=== PATIENT | female | born 1955 | race Caucasian/White ===

== ENCOUNTER 2017-04-17 21:09 | Emergency (ER) | payer SELFPAY ==
[~2017-04-17] VITALS: Ht 157.5 cm; Wt 48.0 kg
[2017-04-17 21:14] VITALS: BP 139/89; PULSE 110; RESP 15; TEMP 98.2; O2SAT 97
[2017-04-17] MEDS ORDERED: TETANUS/DIPHTHERIA TOXOID ADULT 0.5 ML VIAL IM ONE (21:45)
[2017-04-17] MEDS ORDERED: MORPHINE SULFATE 4 MG/ML INJ IV PUSH ONE (21:45)
[2017-04-17] MEDS ORDERED: ceFAZolin 2 GM PREMIX 50 ML IV ONE (21:45)
[2017-04-17] MEDS ORDERED: SODIUM CHLOR 0.9% 1000 ML INJ 1,000 ML IV ONE (21:45)
[2017-04-17] MEDS ORDERED: ONDANSETRON HCL 4 MG/2 ML VIAL IV PUSH ONE (21:45)
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
[2017-04-17] MEDS ORDERED: LIDOCAINE 1%/EPINEPHrine 1:100,000 SOLN 50 ML VIAL INFIL ONE (22:45)
[2017-04-17] MEDS ORDERED: ACETAMINOPHEN/HYDROcodone 325 MG/10 MG TAB PO ONE (23:30)
[2017-04-17] MEDS ORDERED: HYDR-3534 PO (23:58)
[2017-04-17] MEDS ORDERED: CEPH-460 PO (23:58)
== END 2017-04-18 00:18 | disposition home or self-care (01) ==
LOC: NEPD 21:09
DX: S81.012A Laceration without foreign body, left knee, initial encounter (principal); V27.5XXA Motorcycle passenger injured in collision with fixed or stationary object in traffic accident, initial encounter; Z23 Encounter for immunization
CPT/HCPCS: 12004; 71020; 73130; 73564; 90471; 90714; 96361; 96365; 96375; 99284; E0113; J0690; J2270; J2405; J7030; L1830

== ENCOUNTER 2018-06-20 22:44 | Inpatient (IN) ==
[2018-06-20] MEDS ORDERED: Morphine Inj 4 MG/ML Vial IV.PUSH ONE (23:57)
[2018-06-20] MEDS ORDERED: Ketorolac Inj 30 MG/ML (IVP) Vial IV.PUSH ONE (23:57)
--- NOTE | 2018-06-21 00:09 | XR ---
EXAM DATE: 06/20/2018 11:53 PM EST AGE/SEX: 63 years / Female INDICATIONS: Left hip pain after falling tonight. CLINICAL DATA: This is the patient's initial encounter. Patient reports that signs and symptoms have been present for 1 day and indicates a pain score of 10/10. MEDICAL/SURGICAL HISTORY: None. None. COMPARISON: No prior exams available for comparison. FINDINGS: There is an impacted subcapital left femoral neck fracture with cephalad displacement of the distal f ragment. Soft tissues are grossly unremarkable. No radiopaque foreign bodies. CONCLUSION: 1. Subcapital left femoral neck fracture. Electronically signed by: Oscar Arevalo MD Board Certified Radiologist 06/21/2018 12:08 AM E
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
[2018-06-21] MEDS: Sod Chloride 0.9% Inj 1,000 ML IV.CONT SCH ×3 (00:22→19:45)
[2018-06-21 00:27] LABS: Baso # (Auto) 0.1 th/mm3 (0.0-0.2); Baso % (Auto) 0.8 % (0.0-2.0); Eos % (Auto) 0.2 % (0.0-4.0); Hematocrit 50.9 % (35.0-46.0); Hemoglobin 16.6 gm/dL (11.6-15.3); Lymph # (Auto) 0.9 th/mm3 (1.0-4.8); Lymph % (Auto) 6.2 % (9.0-44.0); Mean Corpuscular HGB Conc 32.5 % (32.0-36.0); Mean Corpuscular Hemoglobin 31.3 pg (27.0-34.0); Mean Corpuscular Volume 96.3 fL (80.0-100.0); Mono # (Auto) 0.4 th/mm3 (0.0-0.9); Mono % (Auto) 2.9 % (0.0-8.0); Neut # (Auto) 12.7 th/mm3 (1.8-7.7); Neut % (Auto) 89.9 % (16.0-70.0); Platelet Count 240 th/mm3 (150-450); Red Blood Count 5.29 mil/mm3 (4.00-5.30); Red Cell Distribution Width 13.7 % (11.6-17.2); White Blood Count 14.1 th/mm3 (4.0-11.0)
[2018-06-21 00:34] LABS: Chloride 102 meq/L (98-107); Potassium 3.8 meq/L (3.5-5.1); Sodium 140 meq/L (136-145)
[2018-06-21 00:37] LABS: Calcium 8.6 mg/dL (8.5-10.1)
[2018-06-21 00:38] LABS: Activated Partial Thrombo Time 25.7 sec (23.4-31.7); Anion Gap 11 meq/L (5-15); Blood Urea Nitrogen 14 mg/dL (7-18); Carbon Dioxide 27.5 meq/L (21.0-32.0); Glucose,Random 114 mg/dL (74-106); Magnesium 1.7 mg/dL (1.5-2.5); Prothrombin Time 9.7 sec (9.8-11.6)
[2018-06-21 00:41] LABS: Alanine Aminotransferase 26 U/L (10-53); Aspartate Aminotransferase 30 U/L (15-37); Glomerular Filtration Rate 89 mL/min (>89)
[2018-06-21 00:42] LABS: Total Protein 7.6 g/dL (6.4-8.2)
[2018-06-21 00:43] LABS: Alcohol 210 mg/dL (0-5)
[2018-06-21 00:44] LABS: Alkaline Phosphatase 78 U/L (45-117)
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
--- NOTE | 2018-06-21 00:46 | XR ---
EXAM DATE: 06/21/2018 12:43 AM EST AGE/SEX: 63 years / Female INDICATIONS: Evaluate for pneumonia, pneumothorax, and communicable disease. Pre op for left hip fr acture. CLINICAL DATA: This is the patient's initial encounter. Patient reports that signs and symptoms have been present for 1 day and indicates a pain score of 0/10. MEDICAL/SURGICAL HISTORY: None. None. COMPARISON: No prior exams available for comparison. FINDINGS: A single AP view of the chest demonstrates the lungs to be symmetrically aerated without evidence of mass, infiltrate or effusion. The cardiomediastinal contours are unremarkable. Osseous structures a re intact. CONCLUSION: 1. No acute cardiopulmonary disease. Electronically signed by: Oscar Arevalo MD Board Certified Radiologist 06/21/2018 12:44 AM E
[2018-06-21] MEDS ORDERED: Morphine Sulfate Inj 2 MG/ML Vial IV.PUSH ONE (01:01)
[2018-06-21 01:08] LABS: Bilirubin,Urine Negative (Negative); Clarity,Urine Clear (Clear); Color,Urine Yellow (Yellw/Straw); Glucose,Urine (UA) Negative (Negative); Leukocyte Esterase,Urine Negative (Negative); Nitrite,Urine Negative (Negative); Specific Gravity,Urine 1.025 (1.002-1.035)
[2018-06-21 01:18] LABS: RBC,Urine 0-3 /hpf (0-3); Squamous Epithelial Cell,Urine 0-5 /hpf (0-5); WBC,Urine 0-5 /hpf (0-5)
[2018-06-21] MEDS ORDERED: Acetaminophen 325 MG Tablet PO PRN (04:10)
--- NOTE | 2018-06-21 04:11 | P.HPIM ---
History of Present Illness Service: [facility] Primary Care Physician: No Primary Care Physician Chief Complaint: Left hip pain History of Present Illness: 63-year-old female with no medical history presented to the ED status post fall. Patient states she was walking and she misstepped and fell on her left hip. She thinks her knee gave out and caused her to fall. She was unable to stand or weight-bear on the left lower extremity. She states her pain is an 8/10, intermittent, throbbing, with radiation down her leg, no associated symptoms, worse with movement, better with pain medications. She denies any loss of consciousness or hitting her head. Inpatient Certification Inpatient Certification: I certify that the inpatient services were ordered in accordance with Medicare regulations governing the order. This includes certification that hospital inpatient services are reasonable and necessary and in the case of services not specified as inpatient-only under 42 CFR 419.22(n), that they are appropriately provided as inpatient services in accordance to with the 2-midnight benchmark under 43 CFR 412.3(e) Review of Systems Review of Systems: all other systems reviewed are negative [facility] Medical History Medical History No significant medical problems (Acute) Surgical History Surgical History No history of previous surgery (Acute) Family History Family History Other Family history in first degree relatives is unremarkable Social History Social History Substance History: No History of Abuse Second Hand Smoke Exposure: Yes Smoking Status: Current every day smoker Tobacco Type: Cigarettes How Often Do You Have a Drink Containing Alcohol: 4 or more times a week Recent Travel in [place] within the Last 8 Weeks: No Recent Out of Country Travel within the Last 8 Weeks: No Immunization History Tetanus Immunization: >5 Years Hx Influenza Vaccine This Season: No Medications and Allergies Allergies Allergy/AdvReac Type Severity Reaction Status Date / Time No Known Allergies Allergy Verified 06/20/18 23:02 Home Medications Medication Instructions Recorded Confirmed Type No Known Home Medications 06/20/18 06/20/18 History Active Medications: Active Medications Sodium Chloride (Ns Inj) 1,000 mls @ 100 mls/hr IV.CONT .Q10H JAMAAL Last Infusion: 06/21/18 02:35 Dose: 100 mls/hr Sodium Chloride (Ns Flush) 2 ml IV.FLUSH UNSCH PRN PRN Reason: FLUSH AFTER USING IV ACCESS Physical Exam Vital signs: Last Vital Signs Temp 98.7 F 06/20/18 22:50 Pulse 84 06/21/18 01:38 Resp 16 06/21/18 01:38 BP 126/87 06/21/18 01:38 Pulse Ox 96 06/21/18 01:38 Intake & Output 06/18/18 06/19/18 06/20/18 06/21/18 06:59 06:59 06:59 06:59 Weight 45.569 kg Narrative: GENERAL: well nourished patient in pain SKIN: Warm and dry. HEAD: Normocephalic. EYES: No scleral icterus. No injection or drainage. NECK: Supple, trachea midline. No JVD or lymphadenopathy. CARDIOVASCULAR: Regular rate and rhythm without murmurs, gallops, or rubs. RESPIRATORY: Breath sounds equal bilaterally. No accessory muscle use. GASTROINTESTINAL: Abdomen soft, non-tender, nondistended. MUSCULOSKELETAL: No cyanosis, or edema. unable to move left leg Results Labs CBC & Chem 7: 06/21/18 00:15 06/21/18 00:15 Imaging Impressions Femur X-Ray 06/20/18 23:24 CONCLUSION: 1. Subcapital left femoral neck fracture. Chest X-Ray 06/21/18 00:10 CONCLUSION: 1. No acute cardiopulmonary disease. Hip X-Ray 06/21/18 00:10 CONCLUSION: 1. Left subcapital femoral neck fracture. Caprini VTE Risk Assessment Caprini VTE Risk Assessment: No/Low Risk (score <= 1) Caprini Risk Assessment Model: Point Value = 1 Point Value = 2 Point Value = 3 Point Value = 5 Age 41-60 Minor surgery BMI > 25 kg/m2 Swollen legs Varicose veins or History of unexplained or recurrent spontaneous Oral contraceptives or hormone replacement Sepsis (< 1 month) Serious lung disease, including pneumonia (< 1 month) Abnormal pulmonary function Acute myocardial infarction Congestive heart failure (< 1 month) History of inflammatory bowel disease Medical patient at bed rest Age 61-74 Arthroscopic surgery Major open surgery (> 45 min) Laparoscopic surgery (> 45 min) Malignancy Confined to bed (> 72 hours) Immobilizing plaster cast Central venous access Age >= 75 History of VTE Family history of VTE Factor V Leiden Prothrombin [id number] Lupus anticoagulant Anticardiolipin antibodies Elevated serum homocysteine Heparin-induced thrombocytopenia Other congenital or acquired thrombophilia Stroke (< 1 month) Elective arthroplasty Hip, pelvis, or leg fracture Acute spinal cord injury (< 1 month) Prophylaxis Regimen: Total Risk Factor Score Risk Level Prophylaxis Regimen 0-1 Low Early ambulation 2 Moderate Order ONE of the following: *Sequential Compression Device (SCD) *Heparin 5000 units SQ BID 3-4 Higher Order ONE of the following medications: *Heparin 5000 units SQ TID *Enoxaparin/Lovenox 40 mg SQ daily (WT < 150 kg, CrCl > 30 mL/min) *Enoxaparin/Lovenox 30 mg SQ daily (WT < 150 kg, CrCl > 10-29 mL/min) *Enoxaparin/Lovenox 30 mg SQ BID (WT < 150 kg, CrCl > 30 mL/min) AND/OR *Sequential Compression Device (SCD) 5 or more Highest Order ONE of the following medications: *Heparin 5000 units SQ TID (Preferred with Epidurals) *Enoxaparin/Lovenox 40 mg SQ daily (WT < 150 kg, CrCl > 30 mL/min) *Enoxaparin/Lovenox 30 mg SQ daily (WT < 150 kg, CrCl > 10-29 mL/min) *Enoxaparin/Lovenox 30 mg SQ BID (WT < 150 kg, CrCl > 30 mL/min) AND *Sequential Compression Device (SCD) Assessment and Plan Plan 63-year-old female with no medical history presented to the ED status post fall. Hip Fracture, left Femur x-ray reviewed and shows a sub-femoral neck fracture -Consult orthopedics -N.p.o., IVF -Pain management with IV morphine Alcohol abuse, 5-6 beers a day -CIWA protocol -Withdraw precautions DVT prophylaxis: SCDs on nonaffected leg Discussed Condition With: Patient and RN H&P: Quality VTE Deep Vein Thrombosis/Pulmonary Embolism Present on Admission: No
[2018-06-21] MEDS ORDERED: LORazepam 1 MG Tablet PO PRN (04:28)
[2018-06-21] MEDS ORDERED: Haloperidol Inj 5 MG/ML Ampul IV.PUSH PRN (04:28)
[2018-06-21] MEDS: Morphine Sulfate Inj 2 MG/ML Vial IV.PUSH PRN ×3 (04:40→17:23)
--- NOTE | 2018-06-21 06:38 | P.CONOP ---
[facility] Orthopedics Consult Note - [facility] Consult date: 06/21/18 Consult reason: fracture Chief complaint: LEFT HIP FRACTURE Narrative: 63-year-old female with no medical history presented to the ED status post fall. Patient states she was walking and she misstepped and fell on her left hip. She was unable to stand or weight-bear on the left lower extremity. She states her pain is an 8/10, intermittent, throbbing, with radiation down her leg , no associated symptoms, worse with movement, better with pain medications. She denies any loss of consciousness or hitting her head. She denies any other extremity injury. She states she ambulates unassisted at baseline. She is very active Review of Systems Denies fevers, chills, nausea, vomiting. Denies chest pain, cough, shortness of breath. Denies abdominal pain or change in urination. Denies back pain, weakness, numbness or tingling. Denies dizziness, blurry vision or throat pain. Reports left hip pain PMFSH - History History Provided By: Patient - Medical History Medical History: Medical History (Last Reviewed 06/21/18 @ 04:31 by TIFFANY Davis) No significant medical problems - Surgical History Surgical History: Surgical History (Last Reviewed 06/21/18 @ 04:31 by TIFFANY Davis) No history of previous surgery - Family History Family History: Family History (Last Reviewed 06/21/18 @ 04:31 by TIFFANY Davis) Other Family history in first degree relatives is unremarkable - Tobacco History Second Hand Smoke Exposure: Yes Tobacco Use In Past 30 Days: Yes Smoking Status: Current every day smoker Tobacco Type: Cigarettes - Alcohol History How Often Do You Have a Drink Containing Alcohol: 4 or more times a week - Substance Use History Substance History: No History of Abuse - Travel History Recent Travel in the [place] Within the Last 8 Weeks: No Recent Travel Out of the Country Within the Last 8 Weeks: No - Immunization History Tetanus Immunization: >5 Years Hx Influenza Vaccine This Season: No Medications and Allergies Active Medications: Active Medications Acetaminophen (Tylenol) 650 mg PO Q4H PRN PRN Reason: Temp > 100.4 Flumazenil (Romazecon Inj) 0.2 mg IV.PUSH Q1M PRN PRN Reason: OVERSEDATION Haloperidol Lactate (Haldol Inj) 1 mg IV.PUSH Q15M PRN PRN Reason: for severe agitation Sodium Chloride (Ns Inj) 1,000 mls @ 100 mls/hr IV.CONT .Q10H JAMAAL Last Infusion: 06/21/18 02:35 Dose: 100 mls/hr Lorazepam (Ativan Inj) 1 mg IV.PUSH Q4H PRN PRN Reason: for CIWA 8-10 Lorazepam (Ativan Inj) 2 mg IV.PUSH Q1H PRN PRN Reason: for CIWA 15-20 Lorazepam (Ativan Inj) 2 mg IV.PUSH Q2H PRN PRN Reason: for CIWA 11-14 Lorazepam (Ativan) 1 mg PO Q4H PRN PRN Reason: for CIWA 8-10 Lorazepam (Ativan) 2 mg PO Q2H PRN PRN Reason: for CIWA 11-14 Lorazepam (Ativan Inj) 2 mg IV.PUSH Q15M PRN PRN Reason: for CIWA > 20 Morphine Sulfate (Morphine Inj) 2 mg IV.PUSH Q3H PRN PRN Reason: PAIN SCALE 1 TO 10 Last Admin: 06/21/18 04:40 Dose: 2 mg Ondansetron HCl (Zofran Inj) 4 mg IV.PUSH Q6H PRN PRN Reason: NAUSEA OR VOMITING Sodium Chloride (Ns Flush) 2 ml IV.FLUSH UNSCH PRN PRN Reason: FLUSH AFTER USING IV ACCESS Sodium Chloride (Ns Flush) 2 ml IV.FLUSH BID JAMAAL Sodium Chloride (Ns Flush) 2 ml IV.FLUSH PRN PRN PRN Reason: FLUSH AFTER USING IV ACCESS Allergies Allergy/AdvReac Type Severity Reaction Status Date / Time No Known Allergies Allergy Verified 06/20/18 23:02 Home Medications Medication Instructions Recorded Confirmed Type No Known Home Medications 06/20/18 06/20/18 History Exam Vital signs: Vital Signs 06/20/18 22:50 06/20/18 23:57 06/21/18 01:38 Temperature 98.7 F Pulse Rate 90 84 Respiratory Rate 18 16 Blood Pressure 139/75 126/87 Pulse Oximetry 94 L 98 96 06/21/18 04:00 Temperature 97.2 F L Pulse Rate 82 Respiratory Rate 18 Blood Pressure 152/85 H Pulse Oximetry 93 L Intake & Output 06/20/18 06/20/18 06/21/18 06:59 18:59 06:59 Output Total 300 / 300 Balance -300 / -300 Weight 45.569 kg Output: Urine Amount (Catheter) 300 / 300 Indwelling Urethral Catheter 300 / 300 Other: Date of Last Bowel Movement 06/20/18 Weight On Admission 45.569 kg Narrative: Awake, alert, no acute distress Normocephalic Pupils equal No JVD Moist mucous membranes Nonlabored respirations Soft nontender abdomen Regular rate Right upper extremity: No tenderness to palpation or visible deformities. Full active range of motion and strength throughout. Sensation intact. Brisk cap refill. Left upper extremity:No tenderness to palpation or visible deformities. Full active range of motion and strength throughout. Sensation intact. Brisk cap refill. Right lower extremity: No tenderness to palpation or visible deformities. Full active range of motion and strength throughout. Sensation intact. Brisk cap refill. Left lower extremity: Positive logroll. Unable to assess hip and knee range of motion due to pain. Positive EHL, FHL, dorsiflexion and plantar flexion. Sensation intact. Negative Homans. Brisk cap refill. No rash Normal affect Results - Labs Result Diagrams: 06/21/18 00:15 06/21/18 00:15 Labs: Laboratory Results - last 24 hr 06/21/18 06/21/18 06/21/18 00:15 00:15 00:15 CBC w Diff Auto diff final WBC 14.1 H RBC 5.29 Hgb 16.6 H Hct 50.9 H MCV 96.3 MCH 31.3 MCHC 32.5 RDW 13.7 Plt Count 240 MPV 9.0 Neut % (Auto) 89.9 H Lymph % (Auto) 6.2 L [place] % (Auto) 2.9 Eos % (Auto) 0.2 Baso % (Auto) 0.8 Neut # (Auto) 12.7 H Lymph # (Auto) 0.9 L [place] # (Auto) 0.4 Eos # (Auto) 0.0 Baso # (Auto) 0.1 WBC Differential . Differential Comment . PT 9.7 L INR 1.0 APTT 25.7 Sodium 140 Potassium 3.8 Chloride 102 Carbon Dioxide 27.5 Anion Gap 11 BUN 14 Creatinine 0.67 Estimated GFR 89 Random Glucose 114 H Calcium 8.6 Magnesium 1.7 Total Bilirubin 0.4 AST 30 ALT 26 Alkaline Phosphatase 78 Total Protein 7.6 Albumin 4.0 Urine Color Urine Clarity Urine pH Ur Specific English Urine Protein Urine Glucose (UA) Urine Ketones Urine Occult Blood Urine Nitrate Urine Bilirubin Urine Urobilinogen Ur Leukocyte Esterase Urine RBC Urine WBC Ur Squamous Epith Cells Ur Microscopic Review Serum Alcohol 210 H Blood Type Blood Type Recheck Antibody Screen 06/21/18 06/21/18 00:15 01:00 CBC w Diff WBC RBC Hgb Hct MCV MCH MCHC RDW Plt Count MPV Neut % (Auto) Lymph % (Auto) [place] % (Auto) Eos % (Auto) Baso % (Auto) Neut # (Auto) Lymph # (Auto) [place] # (Auto) Eos # (Auto) Baso # (Auto) WBC Differential Differential Comment PT INR APTT Sodium Potassium Chloride Carbon Dioxide Anion Gap BUN Creatinine Estimated GFR Random Glucose Calcium Magnesium Total Bilirubin AST ALT Alkaline Phosphatase Total Protein Albumin Urine Color Yellow Urine Clarity Clear Urine pH 6.0 Ur Specific English 1.025 Urine Protein Trace Urine Glucose (UA) Negative Urine Ketones Trace H Urine Occult Blood Negative Urine Nitrate Negative Urine Bilirubin Negative Urine Urobilinogen 1.0 Ur Leukocyte Esterase Negative Urine RBC 0-3 Urine WBC 0-5 Ur Squamous Epith Cells 0-5 Ur Microscopic Review Microscopic reviewed Serum Alcohol Blood Type A Positive Blood Type Recheck Required Antibody Screen Negative - Diagnostic results Imaging: Impressions Femur X-Ray 06/20/18 23:24 CONCLUSION: 1. Subcapital left femoral neck fracture. Chest X-Ray 06/21/18 00:10 CONCLUSION: 1. No acute cardiopulmonary disease. Hip X-Ray 06/21/18 00:10 CONCLUSION: 1. Left subcapital femoral neck fracture. Assessment and Plan - Assessment and Plan 63-year-old healthy female with closed left subcapital displaced femoral neck fracture Radiographs reviewed by myself and with the patient. I discussed with the patient that she does have a displaced left subcapital femoral neck fracture. With this in mind, I would recommend operative intervention. I explained to the patient and her family that typically with nonoperative management, patient has persistent hip pain which certainly limits mobilization and places the patient at significant risk for blood clots, pneumonia, skin breakdown leading to ulcers, other infections and possibly even . At this time I would recommend surgical intervention in the form of left hip hemiarthroplasty versus left total hip arthroplasty. I discussed the risks, benefits and alternatives of both of these. I explained to the patient that given she is relatively healthy and 63 along with very active, certainly a total hip arthroplasty would be within reason. I spoke with my partner, Dr. Beasley who plans to assist me with this today at approximately 1230. Plan will be for an anterior total hip arthroplasty. Patient is n.p.o. at this time with plan for surgery likely later today.
[2018-06-21] MEDS ORDERED: ceFAZolin 1 GM Premix Inj 1 GM/50 ML PIGGYBACK IV.SIG ONE (10:08)
[2018-06-21] MEDS ORDERED: SODIUM CHLOR 0.9% IV.SIG SCH (11:00)
[2018-06-21] MEDS ORDERED: Sodium Chlor 0.9% Inj 40 ML, Bupivacaine Liposo PF 1.3% Inj 20 ML P-ARTICULR ONE ×2 (11:00)
[2018-06-21] MEDS ORDERED: TRANEXAMIC ACID IV.SIG SCH (11:00)
--- NOTE | 2018-06-21 11:40 | ECG ---
Date Performed: 06/21/2018 Time Performed: 00:22:44 PTAGE: 63 years EKG: Sinus rhythm POSSIBLE LEFT ATRIAL ENLARGEMENT LOW QRS VOLTAGE IN EXTREMITY LEADS ANTEROSEPTAL MYOCARDIAL INFARCTI ON ABNORMAL ECG NO PREVIOUS TRACING DOCTOR: Dionte Wallis Interpretating Date/Time 06/21/2018 11:38:15
[2018-06-21] MEDS ORDERED: Ketamine Inj 50 MG/5 ML Syringe IV.PUSH ONE (14:13)
--- NOTE | 2018-06-21 14:45 | XR ---
EXAM DATE: 06/21/2018 2:43 PM EST AGE/SEX: 63 years / Female INDICATIONS: Left anterior total hip replacement. CLINICAL DATA: This is the patient's initial encounter. Patient reports that signs and symptoms have been present for 1 day and indicates a pain score of Nonresponsive. MEDICAL/SURGICAL HISTORY: Non-responsive. Non-responsive. COMPARISON: No prior exams available for comparison. FINDINGS: There is a left hip prosthesis in place. There is good position and alignment of the prosthesis with the bony structures. CONCLUSION: Good position and alignment on this postoperative study. Electronically signed by: Ziggy Lacey MD Board Certified Radiologist 06/21/2018 2:44 PM EST
--- NOTE | 2018-06-21 14:55 | P.OP ---
Date of procedure: 06/21/18 Procedure: Left total hip arthroplasty, anterior approach Surgeon: Elvira Lugo MD Biology Specialist: Helder Beasley Estimated blood loss (mL): 100 Operation and Findings: Indications for procedure: Patient is a 63-year-old female presented to the emergency department after mechanical trip and fall and sustaining a displaced closed left subcapital femoral neck fracture. Options of management were reviewed with the patient including hemiarthroplasty versus arthroplasty along with anterior and posterior approaches. Risks, benefits, alternatives were reviewed. At this time the patient has consented to the above-mentioned procedure. The surgical procedure was assisted by my partner, Dr. Helder Beasley. He was assisting me throughout the duration of this procedure. His skill set was medically necessary to complete this procedure. During the surgical case the ophthalmology surgical technician was working at the back table and he was directly assisting me. Operation and Findings: IMPLANTS USED DePuy Corail size [12] stem with a size [50] Lockbourne Gription cup, [50/32] Altrx poly liner, and a [32+1] ceramic head. DETAILS OF PROCEDURE: Patient was brought to OR and placed on OR table. IV sedation and general anesthesia was administered by anesthesiologist. Patient positioned on a Alisha table and was given IV antibiotics. Time-out procedure was performed. The hip and thigh were prepped with alcohol followed by Hibiclens. The thigh was draped in the usual sterile fashion. Clean Air Suite was used for this procedure. The procedure began with a 5-inch incision over the anterolateral thigh. Subcutaneous tissue was dissected with Bovie. The fascia over the tensa fasciae latae was incised longitudinally. Care was taken to avoid injury to the lateral femoral cutaneous nerve. The tensor muscle was retracted laterally. Sartorius was retracted medially. Retractors were now placed. The reflected head of the rectus is now elevated. A capsulotomy was performed over the anterior head capsule. Stay sutures were placed to help retract the capsule. At this point the femoral neck fracture was identified. The remaining femoral neck was cut with an oscillating saw. The femoral head was then removed. At this point attention was turned to preparation of the acetabulum. The labrum was excised. The acetabulum was sequentially reamed up to size [49]. A Lockbourne cup was now placed. Fluoroscopy was used to aid in identification of appropriate version. Cup was fully impacted and found to have excellent fit. Hole eliminator was now placed. The liner was now impacted into the cup. At this point the hip was externally rotated. A hook was placed around the proximal femur. The capsule was released off the lateral femur. The hip was now extended and adducted. Retractors were placed around the proximal femur to allow for exposure. A box osteotome was used to remove the lateral cortex of the femoral neck. A broach was used to help lateralize the prosthesis. Canal finder was used to create a path down the canal. Next, the canal was sequentially broached up to size [12]. During broaching, a small medial calcar crack was identified. This was carefully protected as the canal was continued to be broached up to a size 12. This was found to be an excellent fit. A standard head was placed, and the hip was reduced. The hip was found to have excellent stability with good range of motion. The leg lengths were measured under fluoroscopy and found to be equal compared to contralateral. Trial broach was removed. At this time, a proximal femoral cable was then placed just proximal to the lesser trochanter due to the calcar crack. This was tensioned and then clamped. The cable was cut. The Corail stem was opened. Stem was fully impacted into the proximal femur in appropriate version. The femoral head was placed. The hip was again reduced. Fluoroscopy confirmed excellent alignment of prosthesis. The hip again remained stable to range of motion. The wound was thoroughly irrigated and capsule was closed with #1 Vicryl. Exparel was then injected around the capsular tissue, the muscle and subcutaneous tissue. The fascia over the tensor fasciae muscle was closed with #1 Vicryl, subcutaneous tissue was closed with 3-0 Vicryl and a subcuticular Monocryl stitch used. Sterile dressings were applied. The patient was transferred to Recovery Room in stable condition. Disposition: Weightbearing as tolerated to the left lower extremity. Anterior hip precautions. Okay to perform straight leg raises as tolerated. Should the patient have pain with straight leg raise, she should refrain from doing so.
[2018-06-21] MEDS ORDERED: Post-op Orders (for Pharmacy) OTHER STA (14:57)
[2018-06-21] MEDS ORDERED: *Meperidine Inj 25 MG/ML Vial PERIprocedural Use ONLY ONE (15:27)
[2018-06-21] MEDS ORDERED: fentaNYL Citrate Inj 100 MCG/2 ML Ampul ONE (15:32)
[2018-06-21] MEDS ORDERED: *Labetalol HCl Inj 100 MG/20 ML Vial PERIprocedural Use ONLY IV.PUSH ONE (15:37)
--- NOTE | 2018-06-21 15:50 | XR ---
EXAM DATE: 06/21/2018 3:47 PM EST AGE/SEX: 63 years / Female INDICATIONS: Post OP, Left total hip replacement. CLINICAL DATA: This is the patient's subsequent encounter. Patient reports that signs and symptoms h ave been present for 1 day and indicates a pain score of Nonresponsive. MEDICAL/SURGICAL HISTORY: None. None. COMPARISON: [facility], HIP LEFT W AP PELVIS 2V, 06/21/2018. . FINDINGS: Left total hip arthroplasty is present. The hardware appears intact. Alignment is anatomic. A single cerclage wire encircles the subtrochanteric region. The visualized adjacent pelvis is intact. CONCLUSION: Satisfactory appearance post left SARAI Electronically signed by: George Paz MD Board Certified Radiologist 06/21/2018 3:49 PM EST
--- NOTE | 2018-06-21 16:10 | P.PNADD ---
Addendum to Inpatient Note Reason for Addendum: Additional Documentation Additional information: Patient seen this morning, clear lungs bilaterally, unlabored breathing heart sounds regular rate and rhythm Left leg shorter than right Pending surgical intervention later today
[2018-06-21] MEDS: ceFAZolin Inj 1 GM in Sodium Chlor 0.9% Inj 100 ML IV.SIG SCH (18:09)
[2018-06-21] MEDS ORDERED: ceFAZolin 1 GM Premix Inj 1 GM/50 ML PIGGYBACK IV.SIG SCH (19:00)
[2018-06-21] MEDS: Morphine Inj 4 MG/ML Vial IV.PUSH PRN (21:16)
[2018-06-22] MEDS: Morphine Inj 4 MG/ML Vial IV.PUSH PRN ×3 (00:27→07:36)
[2018-06-22] MEDS: ceFAZolin Inj 1 GM in Sodium Chlor 0.9% Inj 100 ML IV.SIG SCH ×2 (00:44→06:28)
[2018-06-22] MEDS ORDERED: Enoxaparin Inj 40 MG/0.4 ML Syringe SQ SCH (04:00)
[2018-06-22 05:11] LABS: Baso % (Auto) 0.2 % (0.0-2.0); Eos % (Auto) 0.3 % (0.0-4.0); Hematocrit 39.2 % (35.0-46.0); Hemoglobin 13.2 gm/dL (11.6-15.3); Lymph # (Auto) 1.4 th/mm3 (1.0-4.8); Lymph % (Auto) 11.6 % (9.0-44.0); Mean Corpuscular HGB Conc 33.5 % (32.0-36.0); Mean Corpuscular Hemoglobin 32.3 pg (27.0-34.0); Mean Corpuscular Volume 96.2 fL (80.0-100.0); Mean Platelet Volume 9.2 fL (7.0-11.0); Mono # (Auto) 1.1 th/mm3 (0.0-0.9); Mono % (Auto) 9.4 % (0.0-8.0); Neut # (Auto) 9.3 th/mm3 (1.8-7.7); Neut % (Auto) 78.5 % (16.0-70.0); Platelet Count 172 th/mm3 (150-450); Red Blood Count 4.08 mil/mm3 (4.00-5.30); Red Cell Distribution Width 13.7 % (11.6-17.2); White Blood Count 11.9 th/mm3 (4.0-11.0)
[2018-06-22] MEDS: Sod Chloride 0.9% Inj 1,000 ML IV.CONT SCH (05:48)
[2018-06-22 05:49] LABS: Anion Gap 9 meq/L (5-15); Blood Urea Nitrogen 12 mg/dL (7-18); Calcium 8.5 mg/dL (8.5-10.1); Carbon Dioxide 27.2 meq/L (21.0-32.0); Chloride 102 meq/L (98-107); Glomerular Filtration Rate Greater Than 89 mL/min (>89); Glucose,Random 100 mg/dL (74-106); Potassium 3.9 meq/L (3.5-5.1); Sodium 138 meq/L (136-145)
--- NOTE | 2018-06-22 08:09 | P.PNOP ---
Subjective Interval history: Doing well, no overnight events. Pain controlled. Wants to go home today. Physical Exam Vital signs: Vital Signs 06/21/18 08:11 06/21/18 15:15 06/21/18 15:30 Temperature 99.5 F 98.5 F Pulse Rate 98 H 107 H 98 H Respiratory Rate 18 17 18 Blood Pressure 158/86 H 180/104 H 182/89 H Pulse Oximetry 99 98 99 06/21/18 15:45 06/21/18 16:00 06/21/18 16:30 Temperature Pulse Rate 83 74 71 Respiratory Rate 12 12 12 Blood Pressure 158/95 H 155/86 H 164/98 H Pulse Oximetry 95 97 98 06/21/18 16:54 06/21/18 19:52 06/21/18 20:00 Temperature 97.8 F 98.0 F Pulse Rate 91 H 83 Respiratory Rate 19 17 Blood Pressure 161/101 H 142/88 H Pulse Oximetry 95 95 06/22/18 00:05 06/22/18 04:00 Temperature 98.5 F 97.7 F Pulse Rate 95 H 86 Respiratory Rate 17 18 Blood Pressure 162/97 H 169/98 H Pulse Oximetry 96 96 Intake & Output 06/21/18 06/22/18 06/22/18 18:59 06:59 18:59 Intake Total 3254.55 / 3254.55 1680 / 1680 100 / 100 Output Total 200 / 200 775 / 775 Balance 3054.55 / 3054.55 905 / 905 100 / 100 Weight 49.8 kg Intake: IV 1154.55 / 1154.55 1200 / 1200 100 / 100 NS Inj 1,000 ML @ 100 mls/hr IV 1000 / 1000 1000 / 1000 .CONT .Q10H [facility] Rx#:[id number] Cyklokapron Inj 455 MG In NS 104.55 / 104.55 Inj 100 ML @ 200 mls/hr IV.SIG [employer] [facility] Rx#:[id number] Ancef 1 GM Premix Inj 1 gm In 50 / 50 50 ml @ 0 mls/hr IV.SIG .STK- MED ONE Rx#:[id number] Ancef Inj 1 GM In NS Inj 100 ML 200 / 200 100 / 100 @ 100 mls/hr IV.SIG Q6H [facility] Rx #:[id number] Oral 480 / 480 Anesthesia Amount 2100 / 2100 Output: Estimated Blood Loss 200 / 200 Urine Amount (Catheter) 775 / 775 Indwelling Urethral Catheter 775 / 775 Other: Date of Last Bowel Movement 06/20/18 06/20/18 06/20/18 # Bowel Movements 0 Narrative: left hip dressing c/d/i, 2+DP, +EHL/FHL/PF/DF, SILT - Urinary Catheter Management Indwelling Urethral Catheter Cath placed during this visit: yes, but has since been removed by the nurse Reason for continuing: Hourly intake/output Insertion date: 06/21/18 Insertion time: 00:50 Removal date: 06/22/18 Removal time: 05:57 Results - Labs CBC & Chem 7: 06/22/18 04:14 06/22/18 04:14 Laboratory Results - last 24 hr 06/22/18 06/22/18 04:14 04:14 WBC 11.9 H RBC 4.08 Hgb 13.2 D Hct 39.2 MCV 96.2 MCH 32.3 MCHC 33.5 RDW 13.7 Plt Count 172 MPV 9.2 Neut % (Auto) 78.5 H Lymph % (Auto) 11.6 [place] % (Auto) 9.4 H Eos % (Auto) 0.3 Baso % (Auto) 0.2 Neut # (Auto) 9.3 H Lymph # (Auto) 1.4 [place] # (Auto) 1.1 H Eos # (Auto) 0.0 Baso # (Auto) 0.0 WBC Differential . Differential Comment Auto diff final Sodium 138 Potassium 3.9 Chloride 102 Carbon Dioxide 27.2 Anion Gap 9 BUN 12 Creatinine 0.61 Estimated GFR Greater than 89 Random Glucose 100 Calcium 8.5 - Imaging Impressions Hip X-Ray 06/21/18 00:00 CONCLUSION: Good position and alignment on this postoperative study. Hip X-Ray 06/21/18 00:00 CONCLUSION: Satisfactory appearance post left SARAI Assessment and Plan - Assessment and Plan 63 yo F POD 1 s/p left anterior SARAI Plan: pain control WBAT LLE anterior hip precautions VTE ppx: lovenox, change to Xarelto 10 mg daily upon d/c for 14 days Ok to d/c from orthopedic standpoint, follow up with Dr. Lugo in 2 weeks
--- NOTE | 2018-06-22 12:04 | P.PN ---
Subjective Interval history: Pt wanting to go home. Says she doesn't like the hospital bed. Pain is tolerable. Has ambulated in the room. Physical Exam Vital signs: Vital Signs 06/21/18 15:15 06/21/18 15:30 06/21/18 15:45 Temperature 98.5 F Pulse Rate 107 H 98 H 83 Respiratory Rate 17 18 12 Blood Pressure 180/104 H 182/89 H 158/95 H Pulse Oximetry 98 99 95 06/21/18 16:00 06/21/18 16:30 06/21/18 16:54 Temperature 97.8 F Pulse Rate 74 71 91 H Respiratory Rate 12 12 19 Blood Pressure 155/86 H 164/98 H 161/101 H Pulse Oximetry 97 98 06/21/18 19:52 06/21/18 20:00 06/22/18 00:05 Temperature 98.0 F 98.5 F Pulse Rate 83 95 H Respiratory Rate 17 17 Blood Pressure 142/88 H 162/97 H Pulse Oximetry 95 95 96 06/22/18 04:00 06/22/18 08:02 Temperature 97.7 F 98.6 F Pulse Rate 86 90 Respiratory Rate 18 19 Blood Pressure 169/98 H 191/105 H Pulse Oximetry 96 96 Intake & Output 06/21/18 06/22/18 06/22/18 18:59 06:59 18:59 Intake Total 3254.55 / 3254.55 1680 / 1680 300 / 300 Output Total 200 / 200 775 / 775 350 / 350 Balance 3054.55 / 3054.55 905 / 905 -50 / -50 Weight 49.8 kg Intake: IV 1154.55 / 1154.55 1200 / 1200 300 / 300 NS Inj 1,000 ML @ 100 mls/hr IV 1000 / 1000 1000 / 1000 200 / 200 .CONT .Q10H [facility] Rx#:[id number] Cyklokapron Inj 455 MG In NS 104.55 / 104.55 Inj 100 ML @ 200 mls/hr IV.SIG [employer] [facility] Rx#:[id number] Ancef 1 GM Premix Inj 1 gm In 50 / 50 50 ml @ 0 mls/hr IV.SIG .STK- MED ONE Rx#:[id number] Ancef Inj 1 GM In NS Inj 100 ML 200 / 200 100 / 100 @ 100 mls/hr IV.SIG Q6H [facility] Rx #:[id number] Oral 480 / 480 Anesthesia Amount 2100 / 2100 Output: Urine 350 / 350 Estimated Blood Loss 200 / 200 Urine Amount (Catheter) 775 / 775 Indwelling Urethral Catheter 775 / 775 Other: Date of Last Bowel Movement 06/20/18 06/20/18 06/20/18 # Bowel Movements 0 Narrative: left hip dressing c/d/i, grossly intact ROM of all 4 extremities lungs CTA x 2, unlabored Hrt RRR, no murmurs No LE edema - Urinary Catheter Management Indwelling Urethral Catheter Cath placed during this visit: yes, but has since been removed by the nurse Reason for continuing: Hourly intake/output Insertion date: 06/21/18 Insertion time: 00:50 Removal date: 06/22/18 Removal time: 05:57 Results - Labs CBC & Chem 7: 06/22/18 04:14 06/22/18 04:14 Laboratory Results - last 24 hr 06/22/18 06/22/18 04:14 04:14 WBC 11.9 H RBC 4.08 Hgb 13.2 D Hct 39.2 MCV 96.2 MCH 32.3 MCHC 33.5 RDW 13.7 Plt Count 172 MPV 9.2 Neut % (Auto) 78.5 H Lymph % (Auto) 11.6 [place] % (Auto) 9.4 H Eos % (Auto) 0.3 Baso % (Auto) 0.2 Neut # (Auto) 9.3 H Lymph # (Auto) 1.4 [place] # (Auto) 1.1 H Eos # (Auto) 0.0 Baso # (Auto) 0.0 WBC Differential . Differential Comment Auto diff final Sodium 138 Potassium 3.9 Chloride 102 Carbon Dioxide 27.2 Anion Gap 9 BUN 12 Creatinine 0.61 Estimated GFR Greater than 89 Random Glucose 100 Calcium 8.5 - Imaging Impressions Hip X-Ray 06/21/18 00:00 CONCLUSION: Good position and alignment on this postoperative study. Hip X-Ray 06/21/18 00:00 CONCLUSION: Satisfactory appearance post left SARAI Assessment and Plan - Plan s/p left hip SARAI for fx. displaced closed left subcapital femoral neck fracture Xarelto upon discharge today.
[2018-06-23] MEDS ORDERED: Rivaroxaban 10 MG Tablet PO SCH (09:00)
== END 2018-06-22 12:16 | disposition home or self-care (01) ==
LOC: PHED 22:44 → PHEDA 06-21 00:24 → N06 06-21 02:58
PROVIDERS: ADMIT Hospitalist; ATTEND Hospitalist